=== PATIENT | female | born 1935 | race Two or more races ===

== ENCOUNTER 2016-12-02 17:39 | Inpatient (IN) | payer OTHER, MEDICAID ==
[~2016-12-02] VITALS: Ht 154.9 cm; Wt 67.4 kg
[2016-12-02 18:44] LABS: Basophils # (auto) 0.1 uL; Basophils % (auto) 0.5 % (0.0-2.0); CONDITION Y; Eosinophils # (auto) 0 uL; Eosinophils % (auto) 0.3 % (0.0-7.0); Hematocrit 33.8 % (36.0-46.0); Hemoglobin 11.7 g/dL (12.2-16.2); Lymphocytes # (auto) 3.3 uL; Lymphocytes % (auto) 26.3 % (10.0-50.0); Mean Corpuscular Hgb Conc. 34.6 g/dL (32.0-36.0); Mean Corpuscular Volume 89.6 fL (80.0-100.0); Mean Platelet Volume 9.9 fL (7.4-10.4); Monocytes # (auto) 1.1 uL; Monocytes % (auto) 8.7 % (0.0-12.0); Neutrophils % (auto) 64.2 % (37.0-80.0); Platelet Count (auto) 246 10^3/uL (140-450); Red Cell Distribution Width 13.5 % (11.6-16.0); White Blood Cell 12.4 10^3/uL (4.4-10.8)
[2016-12-02 18:58] LABS: Alkaline Phosphatase 87 U/L (45-117); Anion Gap 10 (5-15); Aspartate Aminotransferase 13 U/L (15-37); Bilirubin, Total 1.2 mg/dL (0.2-1.0); Blood Urea Nitrogen 12 mg/dL (7-18); Calcium 8.1 mg/dL (8.5-10.1); Carbon Dioxide 25 mmol/L (21-32); Chloride 94 mmol/L (98-107); GFR African American 117 mL/min; GFR Non-African American 97 mL/min; Glucose 140 mg/dL (74-106); Magnesium 2.1 mg/dL (1.6-2.6); Potassium 3.2 mmol/L (3.5-5.1); Sodium 129 mmol/L (136-145); Total Protein 7.1 g/dL (6.4-8.2)
[2016-12-02] MEDS ORDERED: SODIUM CHLORIDE 0.9% 500 ML IVB ONE (19:38)
[2016-12-02] MEDS ORDERED: MORPHINE SULF INJ 2 MG/ML SYRINGE 1ML IV PRN ×2 (19:45→23:30)
[2016-12-02] MEDS ORDERED: ONDANSETRON HCL 4 MG/2 ML VIAL IV ONE (19:45)
[2016-12-02 20:07] LABS: Amylase 24 U/L (25-115)
[2016-12-02] MEDS ORDERED: POTASSIUM CHL 20MEQ/100ML 100 ML IV ONE (20:45)
[2016-12-02 21:11] LABS: Urine Bilirubin Negative (Negative); Urine Blood Negative /uL (Negative); Urine Color Yellow (Yellow); Urine Glucose Normal (Normal); Urine Ketone Negative (Negative); Urine Nitrite Negative (Negative); Urine RBC 1 /hpf (0 - 4); Urine Squamous Epithelial Cell FEW /hpf (<5); Urine Urobilinogen Normal (Negative); Urine pH 7.5 (5.0-8.0)
[2016-12-02] MEDS ORDERED: ONDANSETRON HCL 4 MG/2 ML VIAL IV PRN (23:30)
[2016-12-02] MEDS ORDERED: TEMAZEPAM 15 MG CAP PO PRN (23:30)
[2016-12-02] MEDS ORDERED: cefTRIAXone 1GM/50ML D5W 50 ML IV ONE (23:30)
[2016-12-02] MEDS ORDERED: metroNIDAZOLE 500MG/100ML 100 ML IV ONE (23:30)
[2016-12-02] MEDS: SODIUM CHLORIDE 0.9% 1,000 ML IV SCH (23:37)
[2016-12-02] MEDS ORDERED: DEXTROSE (50%) 50ML SYRG IV PRN (23:45)
[2016-12-03] VITALS (8 sets, daily range): BP systolic 94–130; BP diastolic 41–79
[2016-12-03] MEDS: ACETAMINOPHEN 500 MG TAB PO PRN (00:43)
[2016-12-03 00:52] LABS: B-Type Natriuretic Peptide 44.9 pg/mL (0-100); Temperature: 22.4 C (20.0-25.0)
[2016-12-03] MEDS: SODIUM CHLORIDE 0.9% 1,000 ML IV SCH (01:31)
[2016-12-03] MEDS: metroNIDAZOLE 500MG/100ML 100 ML IV SCH ×3 (05:48→22:09)
[2016-12-03 06:25] LABS: Basophils # (auto) 0 uL; Basophils % (auto) 0.5 % (0.0-2.0); CONDITION Y; Eosinophils # (auto) 0 uL; Eosinophils % (auto) 0.5 % (0.0-7.0); Hematocrit 36.1 % (36.0-46.0); Hemoglobin 12.3 g/dL (12.2-16.2); Lymphocytes # (auto) 2.1 uL; Lymphocytes % (auto) 25.5 % (10.0-50.0); Mean Corpuscular Volume 90.9 fL (80.0-100.0); Mean Platelet Volume 9.2 fL (7.4-10.4); Monocytes # (auto) 0.8 uL; Monocytes % (auto) 9.9 % (0.0-12.0); Neutrophils # (auto) 5.3 uL; Neutrophils % (auto) 63.6 % (37.0-80.0); Platelet Count (auto) 216 10^3/uL (140-450); Red Cell Distribution Width 14.2 % (11.6-16.0); White Blood Cell 8.4 10^3/uL (4.4-10.8)
[2016-12-03] MEDS: InsuLIN REG 1unit/0.01ml Soln (100units/ml) SC SCH ×3 (06:43→17:00)
[2016-12-03] MEDS: ACCU-CHEK COMFORT CURVE STRIP VI SCH ×4 (06:44→22:09)
[2016-12-03 07:00] LABS: Calcium 7.6 mg/dL (8.5-10.1); Potassium 3.8 mmol/L (3.5-5.1)
[2016-12-03 07:03] LABS: Albumin 2.5 g/dL (3.4-5.0); BUN/Creatinine Ratio 20.4
[2016-12-03 07:08] LABS: Bilirubin, Total 0.7 mg/dL (0.2-1.0); Total Protein 6.3 g/dL (6.4-8.2)
[2016-12-03] MEDS: HYDROcodone-ACET 5/325MG TAB PO PRN ×2 (10:11→18:10)
[2016-12-03] MEDS ORDERED: GLIM2TAB33 PO (16:06)
[2016-12-03] MEDS ORDERED: CHLO50TA PO (16:06)
[2016-12-03] MEDS ORDERED: METF-370 PO (16:06)
[2016-12-03] MEDS ORDERED: ASPI81CH59 PO (16:06)
[2016-12-03] MEDS ORDERED: VALS320T15 PO (16:06)
[2016-12-03] MEDS ORDERED: InsuLIN REG 1unit/0.01ml Soln (100units/ml) SC SCH (22:00)
[2016-12-03] MEDS ORDERED: cefTRIAXone 1GM/50ML D5W 50 ML IV SCH (22:00)
[2016-12-04] MEDS: metroNIDAZOLE 500MG/100ML 100 ML IV SCH (05:10)
[2016-12-04] MEDS: SODIUM CHLORIDE 0.9% 1,000 ML IV SCH ×2 (05:10→09:13)
[2016-12-04 05:42] VITALS: BP 110/41
[2016-12-04] MEDS: InsuLIN REG 1unit/0.01ml Soln (100units/ml) SC SCH ×2 (06:14→11:38)
[2016-12-04] MEDS: ACCU-CHEK COMFORT CURVE STRIP VI SCH ×2 (06:14→11:38)
[2016-12-04 08:00] VITALS: BP 111/42
[2016-12-04] MEDS: ACETAMINOPHEN 500 MG TAB PO PRN (08:28)
[2016-12-04 11:00] VITALS: BP 134/59
== END 2016-12-04 13:20 | disposition home or self-care (01) | DRG 690 ==
LOC: ER 17:43 → OVERFLOW 17:44 → CENTRAL 23:50
PROVIDERS: ADMIT Nurse Practitioner Family; ATTEND Internal Medicine
DX: N12 Tubulo-interstitial nephritis, not specified as acute or chronic (principal); E44.0 Moderate protein-calorie malnutrition; I11.9 Hypertensive heart disease without heart failure; E83.51 Hypocalcemia; M41.9 Scoliosis, unspecified; E11.9 Type 2 diabetes mellitus without complications; D63.8 Anemia in other chronic diseases classified elsewhere; E78.5 Hyperlipidemia, unspecified; E66.9 Obesity, unspecified; E87.6 Hypokalemia; M19.90 Unspecified osteoarthritis, unspecified site; Z79.84 Long term (current) use of oral hypoglycemic drugs; Z95.1 Presence of aortocoronary bypass graft; Z68.28 Body mass index [BMI] 28.0-28.9, adult
CPT/HCPCS: 36415; 71010; 74176; 76775; 80053; 81001; 82150; 82962; 83036; 83690; 83735; 83880; 84484; 85025; 93005; 94761; 96361; 96365; 96368; 96375; J0696; J1815; J2405; J3480; J3490

== ENCOUNTER 2020-09-19 14:46 | Inpatient (IN) | payer BC, MEDICAID ==
[~2020-09-19] VITALS: Ht 152.4 cm; Wt 67.0 kg
[~2020-09-19 14:46] MED LIST: ACE650RS PO; AMOX500T86 PO; APIX5TAB PO; ASPI81CH59 PO; ATOR40TA52 PO; CHLO50TA PO; DOXY50CA PO; GLIM2TAB33 PO; LEVO25TA6 PO; LORA-622 PO; LOSA-39 PO; METF-370 PO; MISC4CAP PO
[2020-09-19] MEDS ORDERED: cloNIDine HCL 0.1 MG TAB PO ONE (15:15)
[2020-09-19] MEDS ORDERED: SODIUM CHLORIDE 0.9% 1,000 ML IV ONE (15:30)
[2020-09-19 15:34] LABS: Basophils # (auto) 0 10 ^3/uL (0-0.2); Basophils % (auto) 0.5 % (0.0-2.0); Eosinophils # (auto) 0.1 10 ^3/uL (0-0.8); Eosinophils % (auto) 0.7 % (0.0-7.0); Hematocrit 36.1 % (36.0-46.0); Hemoglobin 12.8 g/dL (12.2-16.2); Lymphocytes # (auto) 3.1 10 ^3/uL (0.4-5.4); Lymphocytes % (auto) 42.6 % (10.0-50.0); Mean Corpuscular Hemoglobin 32.9 pg (28.0-32.0); Mean Corpuscular Hgb Conc. 35.5 g/dL (32.0-36.0); Mean Corpuscular Volume 92.7 fL (80.0-100.0); Monocytes # (auto) 0.5 10 ^3/uL (0-1.3); Monocytes % (auto) 7.3 % (0.0-12.0); Neutrophils # (auto) 3.6 10 ^3/uL (1.6-8.6); Neutrophils % (auto) 48.9 % (37.0-80.0); Red Cell Distribution Width 13.3 % (11.8-14.3); White Blood Cell 7.3 10^3/uL (4.4-10.8)
[2020-09-19 15:44] LABS: Alanine Aminotransferase 29 U/L (13-56); Albumin 3.2 g/dL (3.4-5.0); Anion Gap 8 (5-15); Aspartate Aminotransferase 18 U/L (15-37); BUN/Creatinine Ratio 20.9; Blood Urea Nitrogen 9 mg/dL (7-18); Calcium 8.1 mg/dL (8.5-10.1); Carbon Dioxide 26 mmol/L (21-32); Chloride 103 mmol/L (98-107); GFR African American 180 mL/min; GFR Non-African American 149 mL/min; Glucose 144 mg/dL (74-106); Sodium 137 mmol/L (136-145)
[2020-09-19 15:49] LABS: Alkaline Phosphatase 78 U/L (45-117); Bilirubin, Total 0.5 mg/dL (0.2-1.0); Total Protein 7.5 g/dL (6.4-8.2)
[2020-09-19 15:57] LABS: INR 1.02 (0.9-1.15)
[2020-09-19] MEDS ORDERED: cefTRIAXone 1GM/50ML D5W 50 ML IV ONE (16:00)
[2020-09-19 16:56] LABS: Urine Bacteria NONE SEEN /hpf (None Seen); Urine Blood Negative /uL (Negative); Urine Specific Gravity 1.004 (1.001-1.035); Urine WBC 1 /hpf (0 - 5)
[2020-09-19] MEDS ORDERED: hydrALAZINE HCL 20 MG/ML VL IV PRN (19:45)
[2020-09-19] MEDS ORDERED: DEXTROSE (50%) 50ML SYRG IV PRN (19:45)
[2020-09-19] MEDS ORDERED: NITROGLYCERIN 0.4 MG SL TAB SL PRN (19:45)
[2020-09-19] MEDS ORDERED: MORPHINE SULFATE INJECTION 2 MG/ML SYRG IV PRN ×2 (19:45)
[2020-09-19] MEDS ORDERED: ACETAMINOPHEN 500 MG TAB PO PRN (19:45)
[2020-09-19] MEDS ORDERED: ONDANSETRON HCL 4 MG/2 ML VIAL IV PRN (19:45)
[2020-09-19] MEDS: ACCU-CHEK COMFORT CURVE STRIP VI SCH (22:49)
[2020-09-19] MEDS: APIXABAN 2.5 MG TAB PO SCH (22:49)
[2020-09-19] MEDS: METOPROLOL TARTRATE 25 MG TAB PO SCH (22:49)
[2020-09-19] MEDS: CLINDAMYCIN 300MG IV 50 ML IV SCH (22:49)
[2020-09-19] MEDS: InsuLIN REG 1unit/0.01ml Soln (100units/ml) SC SCH (22:50)
[2020-09-20 01:47] VITALS: BP 116/71
[2020-09-20] MEDS: CLINDAMYCIN 300MG IV 50 ML IV SCH ×3 (05:30→21:32)
[2020-09-20 05:39] VITALS: BP 153/66
[2020-09-20] MEDS: ACCU-CHEK COMFORT CURVE STRIP VI SCH ×4 (06:10→21:28)
[2020-09-20] MEDS: InsuLIN REG 1unit/0.01ml Soln (100units/ml) SC SCH ×4 (06:11→21:28)
[2020-09-20 08:32] VITALS: BP 156/58
[2020-09-20] MEDS: cefTRIAXone 1GM/50ML D5W 50 ML IV SCH (09:21)
[2020-09-20] MEDS: APIXABAN 2.5 MG TAB PO SCH ×2 (09:21→21:32)
[2020-09-20] MEDS: FAMOTIDINE 20 MG TAB PO SCH (09:22)
[2020-09-20] MEDS: METOPROLOL TARTRATE 25 MG TAB PO SCH ×2 (09:22→21:47)
[2020-09-20] MEDS: FLORASTOR (S. BOULARDII) 250 MG CAP PO SCH (09:22)
[2020-09-20] MEDS ORDERED: LOSARTAN POTASSIUM 50 MG TAB PO ONE (11:00)
[2020-09-20 12:31] VITALS: BP 139/52
[2020-09-20 17:36] VITALS: BP 145/60
[2020-09-20] MEDS: HYDROcodone-ACET 5/325MG TAB PO PRN (21:44)
[2020-09-20 22:00] VITALS: BP 146/65
[2020-09-21 05:00] VITALS: BP 126/48
[2020-09-21] MEDS: CLINDAMYCIN 300MG IV 50 ML IV SCH ×2 (05:48→14:13)
[2020-09-21] MEDS: HYDROcodone-ACET 5/325MG TAB PO PRN (05:48)
[2020-09-21] MEDS: InsuLIN REG 1unit/0.01ml Soln (100units/ml) SC SCH ×2 (06:01→11:30)
[2020-09-21] MEDS: ACCU-CHEK COMFORT CURVE STRIP VI SCH ×2 (06:01→11:30)
[2020-09-21 08:00] VITALS: BP 141/56
[2020-09-21] MEDS: cefTRIAXone 1GM/50ML D5W 50 ML IV SCH (09:27)
[2020-09-21] MEDS: FLORASTOR (S. BOULARDII) 250 MG CAP PO SCH (09:28)
[2020-09-21] MEDS: METOPROLOL TARTRATE 25 MG TAB PO SCH (09:28)
[2020-09-21] MEDS: APIXABAN 2.5 MG TAB PO SCH (09:28)
[2020-09-21] MEDS: FAMOTIDINE 20 MG TAB PO SCH (09:28)
[2020-09-21] MEDS ORDERED: LOSARTAN POTASSIUM 50 MG TAB PO SCH (10:00)
[2020-09-21 11:04] VITALS: BP 141/56
[2020-09-21 12:00] VITALS: BP 151/61
== END 2020-09-21 15:45 | disposition home health service (06) | DRG 603 ==
LOC: EDBD 14:46 → ER 14:46 → TELE 19:39 → TELE-CENTR 21:30 → CENTRAL 09-20 20:05
PROVIDERS: ADMIT Nurse Practitioner Acute Care; ATTEND Internal Medicine
DX: L03.115 Cellulitis of right lower limb (principal); I16.9 Hypertensive crisis, unspecified; E44.1 Mild protein-calorie malnutrition; E11.9 Type 2 diabetes mellitus without complications; I10 Essential (primary) hypertension; I25.10 Atherosclerotic heart disease of native coronary artery without angina pectoris; Z20.822 Contact with and (suspected) exposure to COVID-19; E66.9 Obesity, unspecified; Z86.718 Personal history of other venous thrombosis and embolism; Z68.28 Body mass index [BMI] 28.0-28.9, adult; Z88.2 Allergy status to sulfonamides; I25.2 Old myocardial infarction; Z79.01 Long term (current) use of anticoagulants; Z79.82 Long term (current) use of aspirin; Z95.1 Presence of aortocoronary bypass graft; Z91.14 Patient's other noncompliance with medication regimen
CPT/HCPCS: 36415; 70450; 71045; 80053; 81001; 82962; 83036; 83735; 84443; 84484; 85025; 85049; 85610; 87426; 93005; 93971; 96361; 96365; 96375; G0378; J0696; J1815; J3490

== ENCOUNTER 2022-07-06 21:51 | Inpatient (IN) | payer OTHER, MEDICAID ==
[~2022-07-06] VITALS: Ht 152.4 cm; Wt 68.0 kg
[~2022-07-06 21:51] MED LIST changes: -AMOX500T86 PO; -DOXY50CA PO
[2022-07-06] MEDS ORDERED: MORPHINE SULFATE INJ 2 MG/ml SYRG IV ONE (23:00)
[2022-07-06] MEDS ORDERED: ONDANSETRON HCL 4 MG/2 ML VIAL IV ONE (23:00)
[2022-07-07] MEDS ORDERED: fentaNYL CITRATE 100 MCG/2 ML VL IV ONE (00:30)
[2022-07-07] MEDS ORDERED: SODIUM CHLORIDE 0.9% 500 ML IV ONE (06:00)
[2022-07-07] MEDS ORDERED: DEXTROSE (50%) 50ML SYRG IV PRN (06:00)
[2022-07-07] MEDS ORDERED: ACETAMINOPHEN 325 MG TAB PO PRN (06:00)
[2022-07-07] MEDS ORDERED: MORPHINE SULFATE INJ 2 MG/ml SYRG IV PRN (06:00)
[2022-07-07] MEDS ORDERED: ONDANSETRON HCL 4 MG/2 ML VIAL IV PRN (06:00)
[2022-07-07] MEDS: LEVOTHYROXINE SODIUM 25 MCG TAB PO SCH (06:54)
[2022-07-07] MEDS: InsuLIN REG 1unit/0.01ml Soln (100units/ml) SC SCH ×4 (06:55→22:49)
[2022-07-07] MEDS: ACCU-CHEK COMFORT CURVE STRIP VI SCH ×4 (06:56→22:39)
[2022-07-07 07:11] LABS: Basophils # (auto) 0.1 10 ^3/uL (0-0.2); Basophils % (auto) 1.2 % (0.0-2.0); Eosinophils # (auto) 0 10 ^3/uL (0-0.8); Eosinophils % (auto) 0.4 % (0.0-7.0); Hematocrit 35.3 % (36.0-46.0); Hemoglobin 12.2 g/dL (12.2-16.2); Lymphocytes # (auto) 4.2 10 ^3/uL (0.4-5.4); Lymphocytes % (auto) 37.8 % (10.0-50.0); Mean Corpuscular Hemoglobin 31.3 pg (28.0-32.0); Mean Corpuscular Hgb Conc. 34.6 g/dL (32.0-36.0); Mean Corpuscular Volume 90.7 fL (80.0-100.0); Monocytes # (auto) 0.6 10 ^3/uL (0-1.3); Monocytes % (auto) 5.5 % (0.0-12.0); Neutrophils # (auto) 6.1 10 ^3/uL (1.6-8.6); Neutrophils % (auto) 55.1 % (37.0-80.0); Nucleated Red Blood Cells % 0.1 %; Red Cell Distribution Width 13.4 % (11.8-14.3); White Blood Cell 11.2 10^3/uL (4.4-10.8)
[2022-07-07 07:27] LABS: INR 0.97 (0.9-1.15); Partial Thromboplastin Time 33.6 sec (24.6-33.4)
[2022-07-07 07:39] LABS: Albumin 3.3 g/dL (3.4-5.0); Calcium 8.9 mg/dL (8.5-10.1)
[2022-07-07 07:43] LABS: BUN/Creatinine Ratio 46.7 (10.0-20.0); Bilirubin, Total 0.6 mg/dL (0.2-1.0); Total Protein 7.1 g/dL (6.4-8.2)
[2022-07-07] MEDS: LOSARTAN POTASSIUM 50 MG TAB PO SCH (12:02)
[2022-07-07] MEDS: APIXABAN 5 MG TAB PO SCH ×2 (12:03→22:29)
[2022-07-07] MEDS: PANTOPRAZOLE 40 MG TAB PO SCH (12:03)
[2022-07-07] MEDS ORDERED: HYDR-4902 PO (12:56)
[2022-07-07] MEDS: HYDROcodone-ACET 5/325MG TAB PO PRN (20:18)
[2022-07-07] MEDS: ATORVASTATIN 20 MG TAB PO SCH (22:29)
[2022-07-08] MEDS: HYDROcodone-ACET 5/325MG TAB PO PRN (02:55)
[2022-07-08 05:52] VITALS: BP 111/51
[2022-07-08] MEDS: LEVOTHYROXINE SODIUM 25 MCG TAB PO SCH (06:08)
[2022-07-08] MEDS: InsuLIN REG 1unit/0.01ml Soln (100units/ml) SC SCH ×4 (06:09→21:57)
[2022-07-08] MEDS: ACCU-CHEK COMFORT CURVE STRIP VI SCH ×4 (06:09→21:57)
[2022-07-08 06:14] LABS: BUN/Creatinine Ratio 37.7 (10.0-20.0); Calcium 9.2 mg/dL (8.5-10.1); Potassium 3.8 mmol/L (3.5-5.1)
[2022-07-08 08:40] VITALS: BP 116/71
[2022-07-08] MEDS: LOSARTAN POTASSIUM 50 MG TAB PO SCH (10:00)
[2022-07-08] MEDS: PANTOPRAZOLE 40 MG TAB PO SCH (10:00)
[2022-07-08] MEDS: APIXABAN 5 MG TAB PO SCH ×2 (10:00→21:57)
[2022-07-08] MEDS: ATORVASTATIN 20 MG TAB PO SCH (21:57)
[2022-07-08 22:00] VITALS: BP 116/74
[2022-07-09 05:00] VITALS: BP 167/74
[2022-07-09] MEDS: HYDROcodone-ACET 5/325MG TAB PO PRN (05:07)
[2022-07-09] MEDS: ACCU-CHEK COMFORT CURVE STRIP VI SCH ×2 (06:16→11:30)
[2022-07-09] MEDS: InsuLIN REG 1unit/0.01ml Soln (100units/ml) SC SCH ×2 (06:20→11:30)
[2022-07-09] MEDS: LEVOTHYROXINE SODIUM 25 MCG TAB PO SCH (06:21)
[2022-07-09 09:00] VITALS: BP 119/47
[2022-07-09] MEDS: APIXABAN 5 MG TAB PO SCH (09:23)
[2022-07-09] MEDS: PANTOPRAZOLE 40 MG TAB PO SCH (09:23)
[2022-07-09] MEDS: LOSARTAN POTASSIUM 50 MG TAB PO SCH (09:24)
[2022-07-09 11:01] VITALS: BP 119/47
== END 2022-07-09 13:13 | DRG 563 ==
LOC: ER 21:51 → EDBD 21:51 → OVERFLOW 07-07 05:58 → WEST WING 07-07 23:14
PROVIDERS: ADMIT Nurse Practitioner; ATTEND Internal Medicine
DX: S82.842A Displaced bimalleolar fracture of left lower leg, initial encounter for closed fracture (principal); E11.9 Type 2 diabetes mellitus without complications; I10 Essential (primary) hypertension; W01.0XXA Fall on same level from slipping, tripping and stumbling without subsequent striking against object, initial encounter; Z20.822 Contact with and (suspected) exposure to COVID-19; Y93.89 Activity, other specified; Y92.89 Other specified places as the place of occurrence of the external cause; Y99.8 Other external cause status
CPT/HCPCS: 27808; 36415; 70450; 73610; 80048; 80053; 82962; 85025; 85610; 85730; 87426; 96361; 96374; 96375; 97110; 97163; 97530; G0378; J1815; J2405